=== PATIENT | female | born 1990 | race Caucasian/White ===

== ENCOUNTER 2017-03-08 20:53 | Inpatient (IN) | payer MEDICAID, OTHER ==
[2017-03-08] MEDS ORDERED: OLIVE OIL 118 ML BTL ONE (21:13)
[2017-03-08] MEDS ORDERED: LIDOCAINE 1% 300 MG/30 ML SDV ONE (21:13)
[2017-03-08] MEDS ORDERED: OXYTOCIN 10 UNIT/ML VIAL ONE (21:14)
[2017-03-08] MEDS ORDERED: AMMONIA AROMATIC 1 EACH AMP IH ONE (21:14)
[2017-03-08] MEDS ORDERED: MISOPROSTOL 200 MCG TAB ONE (21:14)
[2017-03-08] MEDS ORDERED: TERBUTALINE SULFATE 1 MG/ML VIAL ONE (21:14)
[2017-03-08] MEDS ORDERED: TERBUTALINE SULFATE 1 MG/ML VIAL IV PRN (21:28)
[2017-03-08] MEDS ORDERED: LIDOCAINE 1% 300 MG/30 ML SDV SC PRN (21:28)
[2017-03-08] MEDS ORDERED: EPSOM SALT 454 GM TP PRN (21:28)
[2017-03-08] MEDS ORDERED: OLIVE OIL 118 ML BTL MISC PRN (21:28)
[2017-03-08] MEDS ORDERED: OXYTOCIN 20 UNIT in LR 1,000 ML IV PRN (21:28)
[2017-03-08] MEDS ORDERED: LR 1,000 ML IV PRN (21:28)
[2017-03-08] MEDS ORDERED: fentaNYL 2MCG/ML/BUP 0.1% RTU 100 ML BAG EP ONE (21:31)
[2017-03-08] MEDS ORDERED: PHENYLEPHRINE HCL 100 MCG/ML SYR ONE (21:32)
[2017-03-08] MEDS ORDERED: BUPIVACAINE 0.25% 30 ML SDV ONE (21:32)
[2017-03-08 21:41] LABS: % IMMATURE GRANULYOCYTES 1.1 % (0.0-1.1); ABSOLUTE IMMATURE GRANULOCYTES 0.26 10^3/uL (0.00-0.10); ADD DIFF? NO; ADD MORPH? NO; ADD SCAN? NO; ATYPICAL LYMPHOCYTE FLAG 0 (0-99); FRAGMENT RBC FLAG 0 (0-99); HEMOGLOBIN 11.2 g/dL (12.6-16.3); LEFT SHIFT FLG 0 (0-99); LIPEMIA HEMOLYSIS FLAG 90 (0-99); MEAN CELL HEMOGLOBIN 29.9 pg (27.9-34.1); MEAN CELL HEMOGLOBIN CONCENTR. 36.1 g/dL (32.4-36.7); MEAN CELL VOLUME 82.7 fL (81.5-99.8); MEAN PLATELET VOLUME 10.4 fL (8.7-11.7); PLATELET CLUMPS FLAG 30 (0-99); PLATELET COUNT 220 10^3/uL (150-400); RED BLOOD CELL COUNT 3.75 10^6/uL (4.18-5.33); RED CELL DISTRIBUTION WIDTH 13.1 % (11.5-15.2)
--- NOTE | 2017-03-08 22:56 | OBDEL ---
Info Type: Vaginal Presentation at Delivery: Vertex L&D Analgesia/Anesthesia Type: None GBS+: No - Hospital Course Intrapartum: 03/08/17 22:54 Patient had been pushing for over 2 hours at home with director heart before presenting to [facility]. Cut File Clerk was concerned about lack of descent and heart rate decelerations during pushing. Indications for Delivery: Spontaneous Labor (Home Transfer) Vaginal Delivery - Delivery Provider Delivery Physician/CNM: Amando Barry - Labor and Delivery Onset of Contractions Type: Spontaneous Rupture of Membranes Type: Artificial Laceration: 2nd Degree Repair: 2-0, Vicryl Vaginal Sponge Count Correct: Yes Vaginal Needle Count Correct: Yes Vaginal Sweep Performed: Yes EBL: 300 Delivery Events: Nuchal Cord Delivery Comment: Vacuum attempted 3 pulls, 2 pop-offs. Head moved with pushing subsequent to vacuum application and pulls. Vaginal delivery of head with Ritgen's maneuver. Head delivered MAYELIN with nuchal cord x1. Cord was not reduced for delivery of shoulders and body. Anterior shoulder, posterior shoulder and body delivered without difficulty. Cord was unwrapped and male infant was placed on mom's abdomen. Cord was quickly clamped and cut and was handed to [facility] for evaluation and resuscitation if needed. score was 7 @ 1 minute and 9 @ 5 minutes. Placenta delivered intact and complete. Pitocin 30U IV was given following delivery of infant. 3-vessel cord noted. Midline 2nd-degree vaginal laceration repaired with 2-0 Vicryl. Lidocaine was injected into surrounding tissue (5 mL) prior to repair. EBL 300 mL. Cytotec was given per rectum for PPH prophylaxis (prolonged labor). No additional lacerations noted on systematic evaluation of cervix, vagina and perineum. Uterine fundus was firm at end of procedure on bimanual exam. Assissted Delivery Assisted Delivery Type: Vacuum Station: Outlet Pop offs (Total): 2 Pulls (Total): 3 Assisted Delivery Comment: Delivery occurred several minutes following an attempt at Vacuum-assisted delivery (patient continued to move head with pushing after vacuum applied ). ICD10 Worksheet Patient Problems: Problems Problem Status Onset Status post vacuum-assisted vaginal delivery Acute - ICD10 Problem Qualifiers (1) Status post vacuum-assisted vaginal delivery
[2017-03-08] MEDS: IBUPROFEN 600 MG TAB PO PRN (22:58)
--- NOTE | 2017-03-08 23:20 | PDGENHP ---
History and Physical - Chief Complaint failed home attempt - History of Present Illness 27-year-old G1 (EDC 03/07/17 b7 10.6 week scan, LMP unknown) white female presents at 40.2 weeks gestation presents as transfer from home attempt. She presented after pushing for 2 hours at home with home civil engineering technician. Clinical Quality Assurance Specialist was concerned that no change in descent had occurred over the 2 hour period of pushing. Additionally, heart rate decelerations had been noted on heart monitoring at home. GBS unknown. Past medical history and past surgical history is non-contributory. She denies tobacco, marijuana use, or alcohol use. Available records: A- / Antibody screen negative / RPR NR / HBsAg Neg / Rubella Immune / HIV Neg / GC Neg/Neg. History Information - Allergies/Home Medication List Allergies/Adverse Reactions: No Known Allergies Allergy (Unverified 03/08/17 21:27) I have personally reviewed and updated: family history, medical history, social history, surgical history - Past Medical History no pertinent PMH - Surgical History Reports: no pertinent surgical hx - Family History Positive for: non-pertinent - Social History Smoking Status: Never smoked Alcohol Use: None Drug Use: None Review of Systems Review of Systems: ROS: 10pt was reviewed & negative except for what was stated in HPI & below Physical Exam Physical Exam: Constitutional: uncomfortable Ears, Nose, Mouth, Throat: moist mucous membranes Cardiovascular: regular rate and rhythym, no murmur, rub, or gallop Respiratory: no respiratory distress Gastrointestinal: other (contractions q 1-2 minutes upon arrival, painful, palpated) Genitourinary: other (cervical exam: 10/100/+1/significant caput developed on occiput) Skin: normal color Neurologic: AAOx3, sensation intact bilaterally Psychiatric: interacting appropriately, anxious Lab Data & Imaging Review 03/08/17 21:02 WBC 23.99 10^3/uL (3.80-9.50) H 03/08/17 21:02 RBC 3.75 10^6/uL (4.18-5.33) L 03/08/17 21:02 Hgb 11.2 g/dL (12.6-16.3) L 03/08/17 21:02 Hct 31.0 % (38.0-47.0) L 03/08/17 21:02 MCV 82.7 fL (81.5-99.8) 03/08/17 21:02 MCH 29.9 pg (27.9-34.1) 03/08/17 21:02 MCHC 36.1 g/dL (32.4-36.7) 03/08/17 21:02 RDW 13.1 % (11.5-15.2) 03/08/17 21:02 Plt Count 220 10^3/uL (150-400) 03/08/17 21:02 MPV 10.4 fL (8.7-11.7) 03/08/17 21:02 Neut % (Auto) 87.4 % (39.3-74.2) H 03/08/17 21:02 Lymph % (Auto) 4.1 % (15.0-45.0) L 03/08/17 21:02 [place] % (Auto) 7.3 % (4.5-13.0) 03/08/17 21:02 Eos % (Auto) 0.0 % (0.6-7.6) L 03/08/17 21:02 Baso % (Auto) 0.1 % (0.3-1.7) L 03/08/17 21:02 Nucleat RBC Rel Count 0.0 % (0.0-0.2) 03/08/17 21:02 Absolute Neuts (auto) 20.98 10^3/uL (1.70-6.50) H 03/08/17 21:02 Absolute Lymphs (auto) 0.98 10^3/uL (1.00-3.00) L 03/08/17 21:02 Absolute Monos (auto) 1.75 10^3/uL (0.30-0.80) H 03/08/17 21:02 Absolute Eos (auto) 0.00 10^3/uL (0.03-0.40) L 03/08/17 21:02 Absolute Basos (auto) 0.02 10^3/uL (0.02-0.10) 03/08/17 21:02 Absolute Nucleated RBC 0.00 10^3/uL (0-0.01) 03/08/17 21:02 Immature Gran % 1.1 % (0.0-1.1) 11/10/17 21:02 Immature Gran # 0.26 10^3/uL (0.00-0.10) H 03/08/17 21:02 Patient ABO/Rh A NEGATIVE 03/08/17 21:02 Antibody Screen NEGATIVE 03/08/17 21:02 Imaging Review: FHR tracing, early decels noted, moderate variability, baseline 120 (upon arrival) Assessment & Plan Assessment: 27-year-old G1 @ 40.2 in 2nd stage of labor with failed attempt at home . Plan: Evaluate and manage 2nd stage of labor and tolerance to labor. Offer appropriate interventions as appropriate.
[2017-03-08] MEDS ORDERED: ACETAMINOPHEN 325 MG TAB PO PRN (23:24)
[2017-03-08] MEDS ORDERED: HYDROCORTISONE 0.5% CREAM TP PRN (23:24)
[2017-03-08] MEDS ORDERED: HYDROCODONE/APAP 5/325 TAB PO PRN (23:24)
[2017-03-08] MEDS ORDERED: SIMETHICONE 80 MG TAB CHEW PO PRN (23:24)
[2017-03-08] MEDS ORDERED: OXYTOCIN 30 UNIT in LR 500 ML IV SCH (23:30)
[2017-03-08] MEDS ORDERED: MISOPROSTOL 200 MCG TAB PR SCH (23:30)
[2017-03-09] MEDS: IBUPROFEN 600 MG TAB PO PRN ×2 (08:52→23:07)
[2017-03-09] MEDS: DOCUSATE SODIUM 100 MG CAP PO PRN ×2 (08:52→20:39)
[2017-03-09] MEDS: IRON POLYSAC/IRON HEME 28 MG TAB PO SCH ×2 (10:31→20:39)
--- NOTE | 2017-03-09 10:37 | OBPP ---
Progress Note Assessment/Plan: Assessment:nipples intact well pain well managed vs wnl afebrile ff@u scant rubra lochia voiding without difficulty inadequete gbs coverage will stay and discharge tomorrow Plan:pp day 1 expectant management 03/09/17 10:35 Subjective/ Course: 03/09/17 10:33 Doing well denies pain. States doing well with . Several questions answered . All smiles today. Bonding well with baby. Objective: 03/08/17 21:02 Patient ABO/Rh A NEGATIVE 03/08/17 21:02 Temp Pulse Resp BP Pulse Ox 37.0 C 80 20 94/58 L 96 03/09/17 09:34 03/09/17 09:34 03/09/17 09:34 03/09/17 09:34 03/09/17 03:25 Physical Exam - Physical Exam General Appearance: WD/WN, alert, no apparent distress Extremities: normal range of motion, Brynn's sign (negative bilaterally) DTR- Lower Extremities: Knee (R): 1+, Knee (L): 1+ (no clonus) Skin: normal color, warm/dry Neuro/Psych: no motor/sensory deficits, alert, normal mood/affect, oriented x 3
[2017-03-09 12:04] LABS: % IMMATURE GRANULYOCYTES 0.6 % (0.0-1.1); ABSOLUTE IMMATURE GRANULOCYTES 0.12 10^3/uL (0.00-0.10); ADD DIFF? NO; ADD MORPH? NO; ADD SCAN? NO; ATYPICAL LYMPHOCYTE FLAG 0 (0-99); FRAGMENT RBC FLAG 0 (0-99); HEMATOCRIT 32.5 % (38.0-47.0); HEMOGLOBIN 11.4 g/dL (12.6-16.3); LEFT SHIFT FLG 0 (0-99); LIPEMIA HEMOLYSIS FLAG 90 (0-99); MEAN CELL HEMOGLOBIN 29.6 pg (27.9-34.1); MEAN CELL HEMOGLOBIN CONCENTR. 35.1 g/dL (32.4-36.7); MEAN CELL VOLUME 84.4 fL (81.5-99.8); MEAN PLATELET VOLUME 10.5 fL (8.7-11.7); PLATELET CLUMPS FLAG 0 (0-99); PLATELET COUNT 251 10^3/uL (150-400); RED BLOOD CELL COUNT 3.85 10^6/uL (4.18-5.33); RED CELL DISTRIBUTION WIDTH 13.5 % (11.5-15.2)
--- NOTE | 2017-03-10 08:09 | OBPP ---
Progress Note Assessment/Plan: Assessment: 27-year-old PPD#2 s/p doing well. Plan: DC home. PP Anemia, iron supplementation prescribed. RTC in 6 weeks. 03/10/17 08:05 03/10/17 08:06 Subjective/ Course: 03/09/17 10:33 Doing well denies pain. States doing well with . Several questions answered . All smiles today. Bonding well with baby. 03/10/17 08:06 Patient is doing great. She reports good pain control with Ibuprofen. She is . She denies significant vaginal bleeding. She desires DC home. Objective: 03/09/17 11:55 Patient ABO/Rh A NEGATIVE 03/08/17 21:02 Temp Pulse Resp BP Pulse Ox 36.6 C 80 20 109/63 97 03/09/17 20:00 03/09/17 20:00 03/09/17 20:00 03/09/17 20:00 03/09/17 20:00 Uterine Position/Fundal Height: Umbilicus -2 Uterine Tone: Firm Physical Exam - Physical Exam Neck: supple Respiratory: lungs clear, normal breath sounds Cardiac/Chest: regular rate, rhythm Abdomen: normal bowel sounds, non-tender, soft Extremities: non-tender, normal inspection DTR- Lower Extremities: Knee (R): 1+, Knee (L): 1+ Skin: normal color, warm/dry Neuro/Psych: no motor/sensory deficits, alert, normal mood/affect, oriented x 3
--- NOTE | 2017-03-10 08:11 | OBGCSDC ---
General Delivery Information - General Info : 1 Para: 1 Abortions: 0 Type: Vaginal L&D Analgesia/Anesthesia Type: None Admission Date: 03/08/17 Labs: Patient ABO/Rh A NEGATIVE 03/08/17 21:02 Hct 32.5 % (38.0-47.0) L 03/09/17 11:55 - Hospital Course Intrapartum: 03/08/17 22:54 Patient had been pushing for over 2 hours at home with cloth coverer before presenting to [facility]. Shot Hole Driller was concerned about lack of descent and heart rate decelerations during pushing. : 03/09/17 10:33 Doing well denies pain. States doing well with . Several questions answered . All smiles today. Bonding well with baby. 03/10/17 08:06 Patient is doing great. She reports good pain control with Ibuprofen. She is . She denies significant vaginal bleeding. She desires DC home. Vaginal - Delivery Provider Delivery Physician/CNM: Amando Barry - Diagnosis Labor: Spontaneous Rupture of Membranes Type: Artificial Laceration: 2nd Degree Repair: 2-0, Vicryl Delivery Events: Nuchal Cord - Procedures Assisted Delivery Type: Vacuum - Delivery EBL: 300 [place] Data Glass Delivery Date: 03/08/17 Delivery Time: 21:19 ADA: 03/07/17 Gestational Age: 40 week(s) and 3 day(s) Sex of Infant: Male Crawford Weight (gm): 0 g Score (1 Min): 7 Score (5 Min): 9 Discharge Information - Discharge Information Prescriptions: Ibuprofen [Motrin (*)] 600 mg PO Q6HRS PRN #40 tab PRN Reason: post , inflammation Iron Polysacch/Iron Heme Polyp [Bifera] 28 mg PO BID #30 tab Condition: Good Instruction/Follow Up: Four Weeks, Six Weeks
[2017-03-10 08:30] VITALS: BP 101/67; PULSE 78; RESP 22; TEMP 97.1; O2SAT 94
[2017-03-10] MEDS: IRON POLYSAC/IRON HEME 28 MG TAB PO SCH (08:41)
[2017-03-10] MEDS: IBUPROFEN 600 MG TAB PO PRN (15:39)
== END 2017-03-10 16:45 | disposition home or self-care (01) | DRG 775 ==
LOC: FLD 20:53 → FOB 03-09 02:13
PROVIDERS: ADMIT Obstetrics & Gynecology Gynecology; ATTEND Obstetrics & Gynecology Gynecology
PROC: 10D07Z6 Extraction of Products of Conception, Vacuum, Via Natural or Artificial Opening (ICD-10-PCS; principal; 2017-03-08)
PROC: 0KQM0ZZ Repair Perineum Muscle, Open Approach (ICD-10-PCS; principal; 2017-03-08)
DX: O62.1 Secondary uterine inertia (principal); O76 Abnormality in fetal heart rate and rhythm complicating labor and delivery; O90.81 Anemia of the puerperium; O70.1 Second degree perineal laceration during delivery; O69.9XX0 Labor and delivery complicated by cord complication, unspecified, not applicable or unspecified; Z37.0 Single live birth; Z3A.40 40 weeks gestation of pregnancy
CPT/HCPCS: J2370; J3105

== ENCOUNTER → 2017-07-18 | Outpatient (CLI) | payer MEDICAID | LOC: FLAB 10:02 | PROVIDERS: ATTEND Advanced Practice Midwife | DX: Z39.1 Encounter for care and examination of lactating mother (principal) | CPT/HCPCS: G0463 ==

== ENCOUNTER 2018-08-14 18:06 | Emergency (ER) | payer MEDICAID ==
--- NOTE | 2018-08-14 18:16 | EDPHY ---
H & P Stated Complaint: n/v/d, abd pain, cough, back pain Time Seen by Provider: 08/14/18 18:15 HPI/ROS: CHIEF COMPLAINT: [ ] HISTORY OF PRESENT ILLNESS: [Need 4: Location, Duration, Severity, Quality, Context, Timing Modifying Factors, Associated S&S] REVIEW OF SYSTEMS: A comprehensive 10 point review of systems is otherwise negative aside from elements mentioned in the history of present illness. Source: Patient Exam Limitations: No limitations - Personal History LMP (Females 10-55): Now Current Tetanus/Diphtheria Vaccine: No Current Tetanus Diphtheria and Acellular Pertussis (TDAP): Yes - Medical/Surgical History Hx Asthma: No Hx Chronic Respiratory Disease: No Hx Diabetes: No Hx Cardiac Disease: No Hx Renal Disease: No Hx Cirrhosis: No Hx Alcoholism: No Hx HIV/AIDS: No Hx Splenectomy or Spleen Trauma: No Other PMH: NONE - Social History Smoking Status: Never smoked - Physical Exam Exam: General Appearance: [Alert, no distress] Eyes: [Pupils equal and round no pallor or injection] ENT, Mouth: [Mucous membranes moist] Respiratory: [There are no retractions, lungs are clear to auscultation] Cardiovascular: [Regular rate and rhythm] Gastrointestinal: [Abdomen is soft and nontender, no masses, bowel sounds normal] Neurological: [A&O, normal motor function, normal sensory exam, normal cranial nerves] Skin: [Warm and dry, no rashes] Musculoskeletal: [Neck is supple nontender] Extremities: [symmetrical, full range of motion] Psychiatric: [Patient is oriented X 3, there is no agitation] Constitutional: Initial Vital Signs Temperature (C) 36.8 C 08/14/18 18:07 Heart Rate 85 08/14/18 18:07 Respiratory Rate 16 08/14/18 18:07 Blood Pressure 111/66 08/14/18 18:07 O2 Sat (%) 97 08/14/18 18:07 O2 Delivery Mode Room Air Allergies/Adverse Reactions: No Known Allergies Allergy (Unverified 03/08/17 21:27) Home Medications: Medication Instructions Recorded Ibuprofen [Motrin (*)] 600 mg PO Q6HRS PRN #40 tab 03/10/17 Iron Polysacch/Iron Heme Polyp 28 mg PO BID #30 tab 03/10/17 [Bifera] Departure - Departure Referrals: NONE *PRIMARY CARE P,. [Primary Care Provider] - As per Instructions
--- NOTE | 2018-08-14 18:49 | EDPHY ---
H & P Time Seen by Provider: 08/14/18 18:15 HPI/ROS: Chief complaint. Diarrhea, cough HPI. 28-year-old female cough for 1 month. 2 days ago she had diarrhea. Not since. She has upper respiratory symptoms and congestion. Yesterday developed headache and sore throat. Last night fever. Achy all over. No travel or known exposure to Infectious Disease. No abdominal pain. No urinary symptoms. No rash. ROS 10 systems were reviewed and negative with the exception of the elements mentioned in the history of present illness Past Medical/Surgical History: Healthy Social History: , nonsmoker, no alcohol Smoking Status: Never smoked Physical Exam: General Appearance: Alert well-developed female mild distress vital signs are stable Eyes: Pupils equal and round no pallor or injection. ENT, tympanic membranes are normal. Pharynx mildly injected without exudate. Respiratory: No retractions. Inspiratory expiratory rhonchi Cardiovascular: Regular rate and rhythm. Gastrointestinal: Abdomen is soft and nontender, no masses, bowel sounds normal. Neurological: Awake and alert, sensory and motor exams grossly normal. Skin: Warm and dry, no rashes. Musculoskeletal: Neck is supple nontender. Extremities symmetrical, full range of motion. Psychiatric: Patient is oriented X 3, there is no agitation. Constitutional: Initial Vital Signs Temperature (C) 36.8 C 08/14/18 18:07 Heart Rate 85 08/14/18 18:07 Respiratory Rate 16 08/14/18 18:07 Blood Pressure 111/66 08/14/18 18:07 O2 Sat (%) 97 08/14/18 18:07 O2 Delivery Mode Room Air Allergies/Adverse Reactions: No Known Allergies Allergy (Unverified 03/08/17 21:27) Home Medications: Medication Instructions Recorded Ibuprofen [Motrin (*)] 600 mg PO Q6HRS PRN #40 tab 03/10/17 Iron Polysacch/Iron Heme Polyp 28 mg PO BID #30 tab 03/10/17 [Bifera] Azithromycin [Zithromax] 250 mg PO DAILY #6 tab 08/14/18 Medical Decision Making - Diagnostics Imaging Results: Imaging Impressions Chest X-Ray 08/14/18 18:59 Impression: Normal. No pneumonia. Chest x-ray interpreted by me is negative for pneumonia ED Course/Re-evaluation: Re-evaluation 7:20 p.m.. Patient and I discussed imaging study results, treatment plan including criteria for return importance of follow-up and further evaluation. She expresses understanding and agreement Differential Diagnosis: I considered pneumonia, bronchitis, viral syndrome Departure - Departure Disposition: Home, Routine, Self-Care Clinical Impression: Bronchitis Condition: Good Instructions: Acute Bronchitis (ED) Additional Instructions: Drink plenty of fluids and stay hydrated Tylenol 1000 mg every 6 hr for fever, ibuprofen 600 mg every 6 hr as needed for fever and achiness Zithromax as antibiotic Return for worsening symptoms Recheck in 2-3 days if not improved Referrals: NONE *PRIMARY CARE P,. [Primary Care Provider] - As per Instructions Edi Reilly MD [Medical Doctor] - 2-3 days, if not improved Prescriptions: Azithromycin [Zithromax] 250 mg PO DAILY #6 tab
[2018-08-14 19:56] VITALS: BP 114/82
== END 2018-08-14 19:50 | disposition home or self-care (01) ==
DX: J40 Bronchitis, not specified as acute or chronic (principal); R19.7 Diarrhea, unspecified; R51 Headache

== ENCOUNTER 2018-10-02 19:51 | Emergency (ER) | payer MEDICAID | END 2018-10-02 22:53 | disposition home or self-care (01) ==